=== PATIENT | female | born 1945 | race Caucasian/White ===

== ENCOUNTER → 2020-06-17 | Outpatient (CLI) | payer MEDICARE ==
[2016-10-10 15:35] VITALS: BP 173/81
[~2020-06-17] MED LIST: ALEN70TA3 PO; AMLO5TAB10 PO; ASPI81TA50 PO; BENA20TA4 PO; BIOT1CAP3 PO; CALC-30 PO; CYAN-25 PO; LEVO500T8 PO; NALT50TA PO; VENL37.57 PO; VENL75CA PO; VENL75CA6 PO
--- NOTE | 2020-06-17 14:39 | RAD ---
Bone densitometry. Clinical history: 75-year-old postmenopausal female for osteoporosis. Lumbar spine: L1-L4. The technical acquisition is adequate. The bone mineral density across the aggregate of L1-L4 is 0.830 gm/cm2. This corresponds to a T-score of -2.9 which is consistent with osteoporotic bone mineral density. At this bone density level, fracture risk is increased. Hip: Right. The technical acquisition is adequate. The bone mineral density at the the right femoral neck is 0.501 gm/cm2. This corresponds to a T-score of -3.9 which is consistent with osteoporotic bone mineral density. At this bone density level, fracture risk is increased. Impression: 1. Osteoporotic bone mineral density of the lumbar spine and hip. Note: Definitions established by the World Health Organization: 1. Normal: T-score is -1.0 or above. 2. Osteopenia: T-score is between -1.0 and -2.5. 3. Osteoporosis: T-score is -2.5 or below. Electronically signed by: Richy Eid MD (06/17/2020 2:37 PM) [id number]
== END | disposition home or self-care (01) ==
LOC: DXRAD 13:26
PROVIDERS: ATTEND Physician Assistant
DX: M81.0 Age-related osteoporosis without current pathological fracture (principal)
CPT/HCPCS: 77080

== ENCOUNTER → 2020-10-23 | Outpatient (CLI) | payer MEDICARE ==
[2016-10-10 15:35] VITALS: BP 173/81
[~2020-10-23] MED LIST changes: +AMLO-186 PO; -AMLO5TAB10 PO
--- NOTE | 2020-10-23 14:32 | RAD ---
XR THORACIC SPINE 3VIEWS 10/23/2020 10:25 AM INDICATION: Mid back pain. COMPARISON: None available. TECHNIQUE: 3 views of the thoracic spine are provided. FINDINGS/ IMPRESSION: 1. There is a superior plate compression fracture involving T11 with near vertebral plana. There is r etropulsion with at least mild osseous spinal canal stenosis. Findings are age indeterminate. Further characterization with MRI of the thoracic spine could be of benefit. 2. Alignment of the thoracic spine is normal. Disc heights are relatively maintained. Mild anterior m arginal osteophytosis. 3. Provided for shoulder arthroplasty is partially profiled. Electronically signed by: Odilia Merrill MD (10/23/2020 2:29 PM) [id number]
== END ==
LOC: DXRAD 10:11
PROVIDERS: ATTEND Family Medicine
DX: S22.080A Wedge compression fracture of T11-T12 vertebra, initial encounter for closed fracture (principal); M48.04 Spinal stenosis, thoracic region; X58.XXXA Exposure to other specified factors, initial encounter; Y93.89 Activity, other specified; Y92.89 Other specified places as the place of occurrence of the external cause; Y99.8 Other external cause status
CPT/HCPCS: 72072

== ENCOUNTER → 2020-11-30 | Outpatient (CLI) | payer MEDICARE ==
[2016-10-10 15:35] VITALS: BP 173/81
--- NOTE | 2020-12-02 14:05 | RAD ---
Three views left shoulder History: pain Internally and externally rotated AP of shoulder obtained, as well as "Y" view. The glenohumeral relationship is normal. There is a fracture of the distal clavicle with mild upward displacement of the proximal clavicle. There is a single small fragment which is avulsed superiorly. There is an old fracture of the left seventh rib. Impression: Acute fracture of the distal left clavicle. end impression Electronically signed by: Mj Morales III, MD (12/02/2020 2:03 PM) [facility]
== END ==
LOC: DXRAD 12:34
PROVIDERS: ATTEND Family Medicine
DX: S42.032A Displaced fracture of lateral end of left clavicle, initial encounter for closed fracture (principal); X58.XXXA Exposure to other specified factors, initial encounter; Y93.89 Activity, other specified; Y92.89 Other specified places as the place of occurrence of the external cause; Y99.8 Other external cause status
CPT/HCPCS: 73030

== ENCOUNTER 2021-06-05 19:25 | Emergency (ER) | payer MEDICARE, OTHER ==
[~2021-06-05] VITALS: Ht 142.2 cm; Wt 45.1 kg
[2021-06-05 20:22] VITALS: BP 165/89
--- NOTE | 2021-06-05 22:29 | PHYS DOC ---
Past History Past Surgical History: No Surgical History Alcohol Use: Occasionally General Adult EDM: Chief Complaint: ALCOHOL INTOXICATION HPI: HPI: 75-year-old female presents with lower thoracic back pain. Patient states that she fell a day or 2 ago and now her back hurts. She has also been drinking alcohol today and is intoxicated. She has no other complaints at this time. Review of Systems: Review of Systems: Constitutional: Denies fever or chills Eyes: Denies change in visual acuity HENT: Denies nasal congestion or sore throat Respiratory: Denies cough or shortness of breath Cardiovascular: Denies chest pain or edema GI: Denies abdominal pain, nausea, vomiting, bloody stools or diarrhea : Denies dysuria Musculoskeletal: Thoracic back pain Integument: Denies rash Neurologic: Denies headache, focal weakness or sensory changes Endocrine: Denies polyuria or polydipsia Lymphatic: Denies swollen glands Psychiatric: Denies depression or anxiety Allergies: Allergies: Allergies Coded Allergies Type Severity Reaction Last Updated Verified No Known Drug Allergies 10/06/16 No Physical Exam: PE: Constitutional: Well developed, well nourished, no acute distress, intoxicated. [] HENT: Normocephalic, atraumatic, bilateral external ears normal, oropharynx moist, no oral exudates, nose normal. [] Eyes: PERRLA, EOMI, conjunctiva normal, no discharge. [] Neck: Normal range of motion, no tenderness, supple, no stridor. [] Cardiovascular: Heart rate regular rhythm, no murmur [] Lungs & Thorax: Bilateral breath sounds clear to auscultation [] Abdomen: Bowel sounds normal, soft, no tenderness, no masses, no pulsatile masses. [] Skin: Warm, dry, no erythema, no rash. [] Back: Lower thoracic and upper lumbar tenderness, no ecchymosis or deformity. [] Extremities: No tenderness, no cyanosis, no clubbing, ROM intact, no edema. [] Neurologic: Alert and oriented X 3, normal motor function, normal sensory function, no focal deficits noted. [] Psychologic: Affect normal, judgement normal, mood normal. [] Current Patient Data: Vital Signs: Vital Signs Date Time Temp Pulse Resp B/P (MAP) Pulse Ox O2 Delivery O2 Flow Rate FiO2 06/05/21 20:22 97.8 90 16 165/89 96 Room Air EKG: EKG: [] Radiology/Procedures: Radiology/Procedures: [] Impressions: Exam: Thoracic spine 2 views INDICATION: Pain, intoxication TECHNIQUE: Frontal and lateral views of the thoracic spine Comparisons: 10/23/2020 FINDINGS: There is compression fracture of the T9 vertebral body with approximately 50% height loss, new when compared to study in October. Additionally there is mild compression fracture of the T12 vertebral body with approximately 50% height loss. Redemonstration of compression fracture of the T11 vertebral body. Diffuse osteopenia. Visualized paraspinal soft tissues are unremarkable. IMPRESSION: Compression fractures of the T9 and T12 vertebral body which are new when compared to the study in October. Electronically signed by: Alessandro Madrigal MD (06/05/2021 10:32 PM) [facility] DICTATED AND SIGNED BY: ALESSANDRO MADRIGAL MD DATE: 06/05/212229 CC: MADELAINE RODGERS MD; ELENA POSEY DO ~MTH0 0 Heart Score: C/O Chest Pain: N/A Risk Factors: Risk Factors: DM, Current or recent (<one month) smoker, HTN, HLP, family history of CAD, obesity. Risk Scores: Score 0 - 3: 2.5% MACE over next 6 weeks - Discharge Home Score 4 - 6: 20.3% MACE over next 6 weeks - Admit for Clinical Observation Score 7 - 10: 72.7% MACE over next 6 weeks - Early Invasive Strategies Course & Med Decision Making: Course & Med Decision Making Pertinent Labs and Imaging studies reviewed. (See chart for details) Patient has what appear to be new compression fractures by x-ray. I am very hesitant to give the patient narcotic pain medicine as she is a chronic alcoholic. I have advised she follow-up with her primary care physician. She is stable for discharge at this time. [] Dragon Disclaimer: Dragon Disclaimer: This electronic medical record was generated, in whole or in part, using a voice recognition dictation system. Departure Departure: Impression: Primary Impression: Alcohol intoxication Qualified Codes: F10.920 - Alcohol use, unspecified with intoxication, uncomplicated Additional Impressions: Back pain Qualified Codes: M54.6 - Pain in thoracic spine Compression fracture Disposition: 01 HOME / SELF CARE / HOMELESS Condition: STABLE Referrals: MADELAINE RODGERS MD (PCP) Patient Instructions: Back, Compression Fracture ELENA POSEY DO Jun 05, 2021 22:29
--- NOTE | 2021-06-05 22:34 | RAD ---
Exam: Thoracic spine 2 views INDICATION: Pain, intoxication TECHNIQUE: Frontal and lateral views of the thoracic spine Comparisons: 10/23/2020 FINDINGS: There is compression fracture of the T9 vertebral body with approximately 50% height loss, new when c ompared to study in October. Additionally there is mild compression fracture of the T12 vertebral thu dy with approximately 50% height loss. Redemonstration of compression fracture of the T11 vertebral b veronica. Diffuse osteopenia. Visualized paraspinal soft tissues are unremarkable. IMPRESSION: Compression fractures of the T9 and T12 vertebral body which are new when compared to the study in [facility]. Electronically signed by: Lalito Kim MD (06/05/2021 10:32 PM) [facility]IAN
== END 2021-06-06 00:10 | disposition home or self-care (01) ==
LOC: ER 19:25
DX: S22.070A Wedge compression fracture of T9-T10 vertebra, initial encounter for closed fracture (principal); S22.080A Wedge compression fracture of T11-T12 vertebra, initial encounter for closed fracture; F10.129 Alcohol abuse with intoxication, unspecified; Y90.9 Presence of alcohol in blood, level not specified; W18.39XA Other fall on same level, initial encounter; Y93.89 Activity, other specified; Y92.89 Other specified places as the place of occurrence of the external cause; Y99.8 Other external cause status
CPT/HCPCS: 72072; 99283

== ENCOUNTER → 2021-06-10 | Outpatient (CLI) | payer MEDICARE, OTHER ==
[2021-06-05 20:22] VITALS: BP 165/89
--- NOTE | 2021-06-10 15:09 | RAD ---
EXAM: Chest, 2 views. HISTORY: Shortness of breath. COMPARISON: None. FINDINGS: 2 views of the chest are obtained. There is no infiltrate, pleural effusion or pneumothorax . There is right apical pleural thickening likely due to scarring. There is a prominent cardiac silho uette. There are multiple chronic appearing rib fractures. There are also mildly displaced right four th, fifth, sixth, and seventh rib fractures of uncertain chronicity. There are moderate and severe th oracic vertebral compression fractures, chronic in appearance. There is a right shoulder arthroplasty . IMPRESSION: 1. No acute pulmonary finding. 2. Multiple chronic appearing rib fractures and age indeterminant superior to mid right rib fractures , described above. Correlate for pain in this location. 3. Chronic appearing thoracic vertebral compression fractures. Electronically signed by: Calli Mcclure MD (06/10/2021 3:06 PM) [id number]
== END ==
LOC: RAD 14:17
PROVIDERS: ATTEND Family Medicine
DX: R06.02 Shortness of breath (principal); Z96.611 Presence of right artificial shoulder joint
CPT/HCPCS: 71046

== ENCOUNTER → 2021-07-13 | Outpatient (CLI) | payer MEDICARE, OTHER ==
--- NOTE | 2021-07-13 16:28 | CARD ---
MR#: [id number] Date of Study: 07/13/2021 Ordering Physician: MADELAINE RODGERS, Referring Physician: MADELAINE RODGERS, Tech: Leatha Jones, [facility] APPROVED REPORT EXAM: Two-dimensional and M-mode echocardiogram with Doppler and color Doppler. Other Information Quality : AverageHR: 61bpm INDICATION Cardiomegaly RISK FACTORS Hypertension Hyperlipidemia 2D DIMENSIONS RVDd2.9 (2.9-3.5cm)Left Atrium(2D)2.4 (1.6-4.0cm) IVSd1.4 (0.7-1.1cm)Aortic Root(2D)2.6 (2.0-3.7cm) LVDd4.0 (3.9-5.9cm)LVOT Diameter2.0 (1.8-2.4cm) PWd1.1 (0.7-1.1cm)LVDs2.8 (2.5-4.0cm) FS (%) 30.0 %SV41.1 ml LVEF(%)57.7 (>50%) Aortic Valve AoV Peak Tom.142.3cm/sAoV VTI32.7cm AO Peak GR.8.1mmHgLVOT Peak Tom.124.4cm/s LVOT VTI 29.52cmAO Mean GR.5mmHg RUDOLPH (VMAX)2.93xr0LXH (VTI)2.91cm2 Mitral Valve MV E Nprkgavy31.1cm/sMV DECEL [id number] MV A Dazdwurz724.1cm/sE/A Ratio0.7 Pulmonary Valve PV Peak Vkepzfwy11.3cm/sPV Peak Grad.3mmHg Tricuspid Valve TR P. Vcnkwvfx251zg/sRAP AKHHSTVN7hzYv TR Peak Gr.63qsBnDZTW60ykGk Pulmonary Vein S1 Zvxcdmnd19.9cm/sD2 Qkvlneav86.7cm/s LEFT VENTRICLE The left ventricle is normal size. There is mild to moderate concentric left ventricular hypertrophy. The left ventricular systolic function is normal and the ejection fraction is within normal range. T he Ejection Fraction is 55-60%. There is normal LV segmental wall motion. Transmitral Doppler flow pa ttern is Grade I-abnormal relaxation pattern. RIGHT VENTRICLE The right ventricle is normal size. There is normal right ventricular wall thickness. The right ventr icular systolic function is normal. ATRIA The left atrium size is normal. The right atrium size is normal. The interatrial septum is intact wit h no evidence for an atrial septal defect or patent foramen ovale as noted on 2-D or Doppler imaging. AORTIC VALVE The aortic valve is normal in structure and function. Doppler and Color Flow revealed no significant aortic regurgitation. There is no significant aortic valvular stenosis. Calculated aortic valve area is 3 cm2 with maximum pressure gradient of 8 mmHg and mean pressure gradient of 4 mmHg. MITRAL VALVE The mitral valve is normal in structure and function. There is no evidence of mitral valve prolapse. There is no mitral valve stenosis. Doppler and Color-flow revealed trace mitral regurgitation. TRICUSPID VALVE The tricuspid valve is normal in structure and function. Doppler and Color Flow revealed trace tricus pid regurgitation with an estimated PAP of 36 mmHg. There is no tricuspid valve stenosis. PULMONIC VALVE The pulmonic valve is not well visualized. Doppler and Color Flow revealed no pulmonic valvular regur gitation. GREAT VESSELS The aortic root is normal in size. The IVC is dilated. PERICARDIAL EFFUSION There is no evidence of significant pericardial effusion. Critical Notification Critical Value: No <Conclusion> The left ventricle is normal size. The left ventricular systolic function is normal and the ejection fraction is within normal range. The Ejection Fraction is 55-60%. There is normal LV segmental wall motion. There is mild to moderate concentric left ventricular hypertrophy. Doppler and Color Flow revealed no significant aortic regurgitation. There is no significant aortic valvular stenosis. Doppler and Color-flow revealed trace mitral regurgitation. Doppler and Color Flow revealed trace tricuspid regurgitation with an estimated PAP of 36 mmHg. Signed by : Srinivasa Bennett MD Electronically Approved : 07/13/2021 16:27:34
== END ==
LOC: ECHO 14:53
PROVIDERS: ATTEND Family Medicine
DX: I51.7 Cardiomegaly (principal)
CPT/HCPCS: 93306